=== PATIENT | female | born 1940 | race Caucasian/White ===

== ENCOUNTER 2018-11-16 07:20 | Outpatient (CLI) | payer MEDICARE ==
[2018-11-16 10:00] LABS: #Basophils 0.1 thou/uL (0.0-0.2); #Eosinphils 0.3 thou/uL (0.0-0.7); #Lymphocytes 1.8 thou/uL (1.20-3.40); #Monocytes 0.7 thou/uL (0.11-0.59); #Neutrophils 3.3 thou/uL (1.40-6.50); %Basophils 0.9 % (0.0-1.0); %Eosinophils 5.2 % (0.0-10.0); %Lymphocytes 29.5 % (21.0-51.0); %Monocytes 10.5 % (0.0-10.0); %Neutrophils 53.9 % (42.0-75.0); Mean Corpuscular HGB CONC 32.4 g/dL (32.0-36.0); Mean Corpuscular Hemoglobin 31.8 pg (27.0-31.0); Mean Corpuscular Volume 98.1 fL (78.0-98.0); Platelet Count 194 thou/uL (130-400); RBC Distribution Width 11.9 % (11.5-14.5); Red Blood Cell (RBC) Count 4.08 mill/uL (4.20-5.40); White Blood Cell (WBC) Count 6.2 thou/uL (4.8-10.8)
[2018-11-16 10:10] LABS: Bacteria/HPF None Seen HPF (None Seen); RBC/HPF None Seen HPF (0-3); Squamous Epithelial 0-3 HPF (0-3); WBC/HPF 0-3 HPF (0-3)
[2018-11-16 10:23] LABS: Anion Gap 11 mmol/L (10-20); BUN (Urea Nitrogen) 13 mg/dL (9.8-20.1); Calc. Creatinine Clearance 0 mL/min (70-130); Calcium 9.4 mg/dL (7.8-10.44); Carbon Dioxide 27 mmol/L (23-31); Chloride 105 mmol/L (98-107); Estimated GFR-MDRD 65; Glucose 87 mg/dL (83-110); Potassium 4.4 mmol/L (3.5-5.1); Sodium 139 mmol/L (136-145)
--- NOTE | 2018-11-19 16:46 | EKG ---
Test Reason : Blood Pressure : / mmHG Vent. Rate : 068 BPM Atrial Rate : 068 BPM P-R Int : 142 ms QRS Dur : 082 ms QT Int : 372 ms P-R-T Axes : 070 010 067 degrees QTc Int : 395 ms Normal sinus rhythm Normal ECG Confirmed by ZENON OATES ([id number]) on 11/19/2018 4:46:15 PM Referred By: MORE Confirmed By:ZENON OATES
== END 2018-11-16 07:21 | disposition home or self-care (01) ==
LOC: LABBT 07:20
PROVIDERS: ATTEND Orthopaedic Surgery Hand Surgery
DX: Z01.818 Encounter for other preprocedural examination (principal); S66.314A Strain of extensor muscle, fascia and tendon of right ring finger at wrist and hand level, initial encounter; S66.316A Strain of extensor muscle, fascia and tendon of right little finger at wrist and hand level, initial encounter
CPT/HCPCS: 80048; 81015; 85025; 93005; 93010

== ENCOUNTER 2018-11-20 10:06 | Day surgery (SDC) | payer MEDICARE ==
[2018-11-16 09:01] VITALS: BMI 20.5
[~2018-11-20 10:06] MED LIST: Bupivacaine 0.5% 10 ML VIAL ONE
[2018-11-20] MEDS ORDERED: Midazolam HCl 2 mg/2 ml Vial ONE ×2 (10:46→12:34)
[2018-11-20] MEDS ORDERED: Lidocaine 1% (PF) 30 ML VIAL ONE (10:46)
[2018-11-20] MEDS ORDERED: Fentanyl 100 MCG/2 ML VIAL ONE ×2 (10:46→12:34)
[2018-11-20] MEDS ORDERED: Bacitracin Zinc Ointment 30 gm TUBE ONE (12:33)
[2018-11-20] MEDS ORDERED: Bupivacaine PF 0.5% 30 ML VIAL ONE (12:33)
[2018-11-20] MEDS ORDERED: Betamet Acet/Betamet Na Ph 30 MG/5 ML VIAL ONE (14:08)
--- NOTE | 2018-11-21 09:30 | OP ---
DATE OF PROCEDURE: 11/20/2018 PREOPERATIVE DIAGNOSES: Tenosynovitis, ECRL and ECRB, extensor digitorum communis to the index finger, middle finger, ring finger, small finger, extensor digiti proprius, extensor digiti minimi. POSTOPERATIVE DIAGNOSES: Tenosynovitis, ECRL and ECRB, extensor digitorum communis to the index finger, middle finger, ring finger, small finger, extensor digiti proprius, extensor digiti minimi. Tenosynovitis of all these tendons as very unusual and spontaneous rupture with marked shortening of the extensor digitorum communis to the ring finger and the small finger and extensor indicis proprius to the small finger. PROCEDURE PERFORMED: 1. Radical tenosynovectomy of all tendons listed as follows: Extensor carpi radialis brevis, extensor carpi radialis longus, extensor digitorum communis of index finger, extensor digitorum communis of ring finger, extensor digitorum communis of middle finger, extensor digitorum communis of small finger, extensor indicis proprius, extensor digiti minimi. 2. Uezz-cj-[id number] ring finger extensor digitorum communis to the middle finger extensor digitorum communis, finally FDP harvest with . 3. Flexor digitorum superficialis, ring finger ipsilateral side, harvested and placed through the interosseous membrane to extensor indicis proprius and extensor digiti minimi and extensor digitorum communis to the small finger split simultaneously and then application of splint. TOURNIQUET TIME: Seventy-five minutes. FINDINGS: Thin extensor indicis proprius, extensor digitorum communis to the index finger with marked tenosynovitis but rupture greater than 5 cm gap well past the retinaculum was the primary stump. The next procedure is radical flexor tenosynovectomy with a dorsal over translocation protected from a sharp object in the future. There was synovitis of all four 2nd and 5th compartment indicis. This was from November 20, 2018. DESCRIPTION OF PROCEDURE: After successful general endotracheal anesthesia, the limb was prepped and draped. Time-out was done appropriately and site, side, and planned procedure were adequate. The patient had a dorsal incision made, carried through skin, subcutaneous tissue beginning at the mid 3rd metacarpal shaft level and coursing proximally to a point we were well proximal to the interosseous membrane. We carried the skin, subcutaneous, developing skin flaps for later closure. The patient had residual retinaculum and retinaculum was harvested from radial side leaving this ulnar base intact for what would be used for translocation protected tendon from the joint. We then debrided the ends of the ring finger, found it still attached well to the ring finger proximal phalanx and joint itself as did the small finger with both a separate compartment seen and it was covered with the extensor digiti minimi as well. The patient then needed visualization by removing this retinaculum over the 5th compartment tendons and seeing that they also had what appeared to be rupture, and proximal to the ulna styloid tendon was found, could not be reattached. We thus would need to use part of the small finger for the graft here, which we did. We then performed radical flexor tenosynovectomy to the extensor digitorum communis tendons, the ECRB, ECRL, EDC to the index finger, ring finger, small finger, and the EDQ and EDQ. The patient finished a radical flexor tenosynovectomy, finished the dissection saving the flexor pollicis longus and the extensors to the second compartment for being translocated on top of the retinaculum later and we realized we needed tendon, so we turned the hand over to palmar side, placed a moist lap sponge over the dorsal wound, and created a Yin incision beginning at the distal mid third distally of the ring finger ipsilateral middle phalanx, down to the middle of the proximal phalanx. We carried through skin, subcutaneous tissue, visualized the FDS by making a small window in the extensor tendon, maintained the pulleys, made a near fullness straight cut not violating the neurovascular structures which were well protected and visualized. We then harvested tendon by bringing it proximal before we entered A1 nisha, lifted up, the raphe and then we made a zigzag incision this proximal carpal tunnel where we could visualize the nerve and brought that into the field palmarly. We did have enough room after dissection to go just proximal to the interosseous membrane, so we did that and then spared the bed of the other extensor that would not bother. We brought this after the radical extensor digitorum profundus and we were able to complete all tasks. Once we had done the weave [id number] with appropriate 3-loop weave and then we made a tendon piece to tie into the flexor communis so would not slip away, we were able to obtain excellent tension and afterwards, with the evaluation of the function had excellent tension as the two fingers that had been in a flexed position, now slightly hyperextended, but with moving out. Bulky dressing was applied. A sugar-tong dorsal block splint and the fingers were detailed without complications. Patient then had tension confirmed, we took the retinaculum pretty underneath the tendon to protect the joint from possible synovitis or tenosynovitis, we were able to close the skin primarily and after we were doing this, released the tourniquet, obtained hemostasis, both the radial side and ulnar side. The patient was irrigated. The translocation was tied with 2-0 Vicryl [id number] interrupted, then we confirmed excellent position of the weaves first of the end-to-side of the ring finger, the end-to-side half of the flexor digitorum superficialis tendon transfer and the tendon transfer small finger. The patient left the operating room. Once we released the tourniquet, closed the skin with interrupted 4-0 nylon simple pattern. No evidence of anesthetic or operative complication. Job ID: [id number]
[2018-11-21 14:09] LABS: Ref Lab Test Ordered AFB SMEAR + CULTURE; Reference Lab Name LABCORP
== END 2018-11-20 16:39 | disposition home or self-care (01) ==
LOC: SDC 10:06
PROVIDERS: ATTEND Orthopaedic Surgery Hand Surgery
PROC: 0LB70ZZ Excision of Right Hand Tendon, Open Approach (ICD-10-PCS; principal; 2018-11-20)
PROC: 0LB70ZZ Excision of Right Hand Tendon, Open Approach (ICD-10-PCS; 2018-11-20)
PROC: 0LB70ZZ Excision of Right Hand Tendon, Open Approach (ICD-10-PCS; 2018-11-20)
PROC: 0LB70ZZ Excision of Right Hand Tendon, Open Approach (ICD-10-PCS; 2018-11-20)
PROC: 0LB70ZZ Excision of Right Hand Tendon, Open Approach (ICD-10-PCS; 2018-11-20)
PROC: 0LB70ZZ Excision of Right Hand Tendon, Open Approach (ICD-10-PCS; 2018-11-20)
PROC: 0LB70ZZ Excision of Right Hand Tendon, Open Approach (ICD-10-PCS; 2018-11-20)
PROC: 0LB70ZZ Excision of Right Hand Tendon, Open Approach (ICD-10-PCS; 2018-11-20)
PROC: 0LX50ZZ Transfer Right Lower Arm and Wrist Tendon, Open Approach (ICD-10-PCS; 2018-11-20)
DX: M65.841 Other synovitis and tenosynovitis, right hand (principal); S66.316A Strain of extensor muscle, fascia and tendon of right little finger at wrist and hand level, initial encounter; M66.241 Spontaneous rupture of extensor tendons, right hand; M19.90 Unspecified osteoarthritis, unspecified site; I11.9 Hypertensive heart disease without heart failure; E78.00 Pure hypercholesterolemia, unspecified; E07.9 Disorder of thyroid, unspecified; Z79.82 Long term (current) use of aspirin; Z79.83 Long term (current) use of bisphosphonates; Z79.899 Other long term (current) drug therapy; Z95.1 Presence of aortocoronary bypass graft; Z98.890 Other specified postprocedural states
CPT/HCPCS: 87070; 87116; 87205; 87206; 88305; J0690; J0702; J2001; J2250; J3010; J3490; S0020

== ENCOUNTER 2019-07-24 08:52 | Outpatient (CLI) | payer MEDICARE ==
[2019-07-24 11:13] LABS: #Basophils 0.1 thou/uL (0.0-0.2); #Eosinphils 0.2 thou/uL (0.0-0.7); #Lymphocytes 1.8 thou/uL (1.20-3.40); #Monocytes 0.5 thou/uL (0.11-0.59); #Neutrophils 4.3 thou/uL (1.40-6.50); %Eosinophils 3.6 % (0.0-10.0); %Lymphocytes 26.1 % (21.0-51.0); %Monocytes 7.6 % (0.0-10.0); %Neutrophils 61.7 % (42.0-75.0); Hemoglobin 13.1 g/dL (12.0-16.0); Mean Corpuscular HGB CONC 33.2 g/dL (32.0-36.0); Mean Corpuscular Hemoglobin 31.2 pg (27.0-31.0); Mean Corpuscular Volume 93.9 fL (78.0-98.0); Mean Platelet Volume 8.1 fL (7.4-10.4); Platelet Count 253 thou/uL (130-400); RBC Distribution Width 11.2 % (11.5-14.5); Red Blood Cell (RBC) Count 4.22 mill/uL (4.20-5.40)
[2019-07-24 11:14] LABS: Bacteria/HPF None Seen HPF (None Seen); Bilirubin Negative (Negative); Blood, Urine Negative (Negative); Clarity Clear (Clear); Glucose, Urine (Dipstick) Normal (Negative); Leukocyte Negative Leu/uL (Negative); Nitrite Negative (Negative); Protein, Urine (Dipstick) Negative (Neg-Trace); RBC/HPF 0-3 HPF (0-3); Squamous Epithelial None Seen HPF (0-3); Urobilinogen Normal mg/dL (Less than 2); WBC/HPF 0-3 HPF (0-3)
[2019-07-24 11:34] LABS: Anion Gap 12 mmol/L (10-20); BUN (Urea Nitrogen) 22 mg/dL (9.8-20.1); Calc. Creatinine Clearance 0 mL/min (70-130); Calcium 9.3 mg/dL (7.8-10.44); Carbon Dioxide 26 mmol/L (23-31); Chloride 106 mmol/L (98-107); Estimated GFR-MDRD 61; Glucose 82 mg/dL (83-110); Potassium 4.9 mmol/L (3.5-5.1); Sodium 139 mmol/L (136-145)
== END 2019-07-24 08:53 | disposition home or self-care (01) ==
LOC: LABBT 08:52
PROVIDERS: ATTEND Orthopaedic Surgery Hand Surgery
DX: Z01.818 Encounter for other preprocedural examination (principal); M19.041 Primary osteoarthritis, right hand; M24.541 Contracture, right hand
CPT/HCPCS: 80048; 81001; 85025; 93005; 93010

== ENCOUNTER 2019-09-25 06:31 | Outpatient (CLI) | payer MEDICARE, OTHER ==
[2019-09-25 11:34] LABS: #Basophils 0.1 thou/uL (0.0-0.2); #Eosinphils 0.4 thou/uL (0.0-0.7); #Lymphocytes 1.9 thou/uL (1.20-3.40); #Monocytes 0.6 thou/uL (0.11-0.59); #Neutrophils 4.7 thou/uL (1.40-6.50); %Basophils 0.9 % (0.0-1.0); %Eosinophils 4.7 % (0.0-10.0); %Monocytes 7.6 % (0.0-10.0); %Neutrophils 61.8 % (42.0-75.0); Hemoglobin 13.4 g/dL (12.0-16.0); Mean Corpuscular HGB CONC 32.8 g/dL (32.0-36.0); Mean Corpuscular Hemoglobin 30.9 pg (27.0-31.0); Mean Corpuscular Volume 94.1 fL (78.0-98.0); Mean Platelet Volume 8.1 fL (7.4-10.4); Platelet Count 274 thou/uL (130-400); RBC Distribution Width 11.2 % (11.5-14.5); Red Blood Cell (RBC) Count 4.33 mill/uL (4.20-5.40); White Blood Cell (WBC) Count 7.7 thou/uL (4.8-10.8)
[2019-09-25 11:35] LABS: Bacteria/HPF None Seen HPF (None Seen); Bilirubin Negative (Negative); Blood, Urine Negative (Negative); Clarity Clear (Clear); Glucose, Urine (Dipstick) Normal (Negative); Leukocyte Negative Leu/uL (Negative); Nitrite Negative (Negative); Protein, Urine (Dipstick) Negative (Neg-Trace); RBC/HPF 0-3 HPF (0-3); Squamous Epithelial 0-3 HPF (0-3); Urobilinogen Normal mg/dL (Less than 2); WBC/HPF None Seen HPF (0-3)
[2019-09-25 11:59] LABS: Anion Gap 11 mmol/L (10-20); BUN (Urea Nitrogen) 14 mg/dL (9.8-20.1); Calc. Creatinine Clearance 0 mL/min (70-130); Carbon Dioxide 27 mmol/L (23-31); Chloride 107 mmol/L (98-107); Estimated GFR-MDRD 65; Glucose 81 mg/dL (83-110); Potassium 4.2 mmol/L (3.5-5.1); Sodium 141 mmol/L (136-145)
[2019-09-25 20:11] LABS: SARS-CoV-2 MS2 Positive; SARS-CoV-2 N Gene Negative; SARS-CoV-2 S Gene Negative; SARS-CoV-2 orf1ab Negative
--- NOTE | 2019-09-25 22:14 | EKG ---
Test Reason : Blood Pressure : / mmHG Vent. Rate : 075 BPM Atrial Rate : 075 BPM P-R Int : 138 ms QRS Dur : 084 ms QT Int : 372 ms P-R-T Axes : 074 046 067 degrees QTc Int : 415 ms Normal sinus rhythm Normal ECG When compared with ECG of 24-JUL-2019 10:42, No significant change was found Confirmed by Merlin PISANO ([id number]) on 09/25/2019 10:13:36 PM Referred By: MORE Confirmed By:Merlin PISANO
== END 2019-09-25 06:32 | disposition home or self-care (01) ==
LOC: LABBT 06:31
PROVIDERS: ATTEND Orthopaedic Surgery Hand Surgery
DX: Z01.818 Encounter for other preprocedural examination (principal); Z11.59 Encounter for screening for other viral diseases; M19.041 Primary osteoarthritis, right hand; M24.541 Contracture, right hand
CPT/HCPCS: 80048; 81001; 85025; 93005; U0003; 87635; 93010

== ENCOUNTER → 2019-09-27 | Day surgery (SDC) | payer MEDICARE ==
[2019-09-25 10:28] VITALS: BMI 20.5
[~2019-09-27] MED LIST changes: +Bacitracin Zinc Ointment 30 gm TUBE ONE; +Betamet Acet/Betamet Na Ph 30 MG/5 ML VIAL ONE; +Bupivacaine 0.25% HCL 30 ML VIAL ONE; -Bupivacaine 0.5% 10 ML VIAL ONE; +Bupivacaine HCl 0.5%/Epinephrine 1:200,000/PF 30 ml Vial ONE; +Bupivacaine PF 0.5% 30 ML VIAL ONE; +Bupivacaine/Epinephrine 0.25% 30 ML VIAL ONE; +Fentanyl 100 MCG/2 ML VIAL ONE; +HYDROcodone/Acetaminophen 5/325 mg Tablet ONE; +Ketorolac Tromethamine 30 MG/ML VIAL ONE; +Labetalol HCl 100 MG/20 ML VIAL ONE; +Lidocaine 1% PF 5 ML VIAL ONE; +Midazolam HCl 2 mg/2 ml Vial ONE; +Ondansetron PF 4 MG/2 ML Vial ONE; +PHENYLEPHRINE-NS 100 MCG/ML 10 ML SYRINGE ONE; +PROPOFOL 200 MG/20 ML VIAL ONE
--- NOTE | 2019-09-27 14:07 | RAD ---
EXAM: XR Finger(s) Rt Min 2 View PROVIDED CLINICAL HISTORY: Arthroplasty COMPARISON: None FINDINGS: Spot fluoroscopic frontal and lateral views of the right ring digit demonstrate PIP arthroplasty reynaldo petersen. IMPRESSION: As above.
--- NOTE | 2019-10-01 13:15 | OP ---
DATE OF PROCEDURE: 09/27/2019 ANESTHESIA: General LMA technique augmented by local metacarpophalangeal joint block both digits, total of 20 cc of 0.5% Marcaine and epinephrine split evenly between right small finger and ring finger. 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 PROCEDURE PERFORMED: At the right ring finger; 1. Dorsal capsular release, right ring finger proximal phalangeal joint. 2. Intrinsic release, radial and ulnar intrinsics, right ring finger. 3. Size 1, [employer] silastic implants proximal interphalangeal joint for proximal phalangeal arthroplasty from dorsal approach. 4. C-arm supervision. At the right small finger; 1. Dorsal capsular release. 2. Intrinsic release, radial and ulnar. 3. Size 00 proximal phalangeal joint arthroplasty with [employer] implant, silastic. ESTIMATED BLOOD LOSS: Total 25 cc. TOURNIQUET TIME: 58 minutes for the ring finger, then tourniquet was down for 20 minutes, and then 45 minutes for the small finger. SPECIMENS: No specimen. INDICATIONS: Patient had previous extensor tendon transfers and MP joint loss extension, this healed well, but she began to notice progressive loss of motion with pain that became excruciating and failed all conservative treatment at the small and ring finger proximal phalangeal joint. Radiographs confirmed the marked osteoarthritis, operative intervention was indicated and she chose to have arthroplasty versus fusion. DESCRIPTION OF PROCEDURE: After successful general endotracheal anesthesia, the limb was prepped and draped. We then placed the block in both of the small and ring finger as identified on the right side and as listed above, waited 5 minutes, and then exsanguinated the limb, inflated the tourniquet to 250 mmHg pressure. Outlined a dorsal approach to both the small finger and ring finger PIP joint in zigzag fashion centered on the PIP joint and we approached the right ring finger first. The incision was carried through skin and subcutaneous tissue, down to an involving extensor mechanism which we then split with Z-plasty over the dorsal aspect. This gave excellent visualization and we then did a shotgun opening of the PIP joint. Then, before we performed anymore procedures, we then did the intrinsic release proximally, taking out a small triangular piece between the extensor tendon and the intrinsics on both sides. We then had 90-degree flexion. We dissected the capsule back and performed a capsule release and then did release palmarly as well. This allowed active visualization and then used a saw to remove the proximal phalanx distal neck and saw a complete articular surface and then made a removal of same surface with the saw in the sagittal plane. Now, we had almost a box cut. The collaterals were now removed, tagged with a 4-0 Prolene for later repair using the Marlyn suture. We then made a saw cut of approximately 1 mm depth from radial to ulnar along the base of the middle phalanx, used a rongeur to remove as much of the dorsal arthritis as possible, leaving the central slips still intact. We then used a bur to remove the remainder of the chondral surface of the ring finger P2 base and then used a C-arm to confirm that the starter broach was placed in appropriate position in the canal both distally and proximally both on P1 and P2. Once this was done, we then began progressive broaching until we had reached the point where the size 1 broach both proximal and distal fit well. C-arm confirmed the centralization and we had trial prosthesis. Trial prosthesis was excellent, so we chose a size 1 [employer] silastic implant for the ring finger. We placed this. We then saw the trial was excellent, so we used a 0.045 K-wire to drill a hole at the neck of the proximal phalanx to replace the collaterals with a 4-0 Prolene back to bone, tied them, placed the #1 prosthesis in an appropriate orientation and then saw the excellent fit, we could achieve 0 degrees 105 degrees passively without undue tension. We then repaired the extensor mechanism with a 4-0 Prolene at both the transverse limbs, interrupted [id number] and at the longitudinal limb, a running [id number]. We then could flex the PIP joint to 110 degrees without undue tension and there was no loss of fixation of the extensor mechanism. We released the tourniquet. Final C-arm pictures for the ring finger showed excellent position. We obtained hemostasis, and then closed the wound with interrupted 5-0 nylon in a mattress pattern. Then, we prepared to place bacitracin, Adaptic, and bulky dressing over this area. The last portion of the procedure had been done with the tourniquet down. We then reinflated the tourniquet. We used the same incision, the same intrinsic release radial and ulnar, and a mirror image arthroplasty except for the size which was a size 00 on the small finger. Otherwise, closure of the wound and of the extensor mechanism and of the collaterals was the same. The patient had excellent position and passive range of motion, we then released the tourniquet for final time, had excellent hemostasis and excellent capillary refill with pink small ring finger digit tips. We placed in a bulky dressing with a splint and put the MP joints at 7 degrees of flexion, the PIP joint at 0 with the nail bed free. The patient left the operating room without evidence of anesthetic or operative complication. Job ID: [id number]
== END ==
LOC: SDC 07:51
PROVIDERS: ATTEND Orthopaedic Surgery Hand Surgery
PROC: 0RRW0JZ Replacement of Right Finger Phalangeal Joint with Synthetic Substitute, Open Approach (ICD-10-PCS; principal; 2019-09-27)
PROC: 0RRW0JZ Replacement of Right Finger Phalangeal Joint with Synthetic Substitute, Open Approach (ICD-10-PCS; 2019-09-27)
PROC: 3E0T3BZ Introduction of Anesthetic Agent into Peripheral Nerves and Plexi, Percutaneous Approach (ICD-10-PCS; 2019-09-27)
PROC: 3E0T3BZ Introduction of Anesthetic Agent into Peripheral Nerves and Plexi, Percutaneous Approach (ICD-10-PCS; 2019-09-27)
DX: M13.841 Other specified arthritis, right hand (principal); M24.541 Contracture, right hand; M35.1 Other overlap syndromes; G89.18 Other acute postprocedural pain; I11.9 Hypertensive heart disease without heart failure; E78.00 Pure hypercholesterolemia, unspecified; E07.9 Disorder of thyroid, unspecified; Z79.82 Long term (current) use of aspirin; Z79.899 Other long term (current) drug therapy; Z88.1 Allergy status to other antibiotic agents; Z88.2 Allergy status to sulfonamides; Z95.1 Presence of aortocoronary bypass graft; Z95.5 Presence of coronary angioplasty implant and graft
CPT/HCPCS: 26536 ×2; 64450 ×2; 73140; 76000; C1776; J0670; J0690; J0702; J1885; J2001; J2250; J2405; J2704; J3010; J3370; S0020

== ENCOUNTER 2020-02-06 07:28 | Outpatient (CLI) | payer MEDICARE, OTHER ==
[2020-02-06 11:47] LABS: #Basophils 0.1 thou/uL (0.0-0.2); #Eosinphils 0.7 thou/uL (0.0-0.7); #Lymphocytes 1.8 thou/uL (1.20-3.40); #Monocytes 0.5 thou/uL (0.11-0.59); #Neutrophils 2.7 thou/uL (1.40-6.50); %Basophils 0.9 % (0.0-1.0); %Eosinophils 11.6 % (0.0-10.0); %Lymphocytes 32.1 % (21.0-51.0); %Monocytes 8.6 % (0.0-10.0); %Neutrophils 46.8 % (42.0-75.0); Hemoglobin 13.2 g/dL (12.0-16.0); Mean Corpuscular HGB CONC 31.7 g/dL (32.0-36.0); Mean Corpuscular Hemoglobin 30.2 pg (27.0-31.0); Mean Corpuscular Volume 95.4 fL (78.0-98.0); Mean Platelet Volume 8.4 fL (7.4-10.4); Platelet Count 293 thou/uL (130-400); RBC Distribution Width 11.1 % (11.5-14.5); Red Blood Cell (RBC) Count 4.36 mill/uL (4.20-5.40); White Blood Cell (WBC) Count 5.7 thou/uL (4.8-10.8)
[2020-02-06 12:26] LABS: Bacteria/HPF None Seen HPF (None Seen); Bilirubin Negative (Negative); Blood, Urine Negative (Negative); Clarity Clear (Clear); Glucose, Urine (Dipstick) Normal (Negative); Ketone, Urine Negative (Negative); Leukocyte Negative Leu/uL (Negative); Nitrite Negative (Negative); Protein, Urine (Dipstick) Negative (Neg-Trace); RBC/HPF 0-3 HPF (0-3); Specific Gravity, Urine 1.013 (1.002-1.036); Squamous Epithelial None Seen HPF (0-3); Urobilinogen Normal mg/dL (Less than 2); WBC/HPF 0-3 HPF (0-3); pH, Urine 6.5 (5.0-9.0)
[2020-02-06 17:49] LABS: SARS-CoV-2 MS2 Positive; SARS-CoV-2 N Gene Negative; SARS-CoV-2 S Gene Negative; SARS-CoV-2 by NAA Not Detected (NotDetected); SARS-CoV-2 orf1ab Negative
== END 2020-02-06 07:29 | disposition home or self-care (01) ==
LOC: LABBT 07:28
PROVIDERS: ATTEND Orthopaedic Surgery Hand Surgery
DX: Z01.818 Encounter for other preprocedural examination (principal); Z20.828 Contact with and (suspected) exposure to other viral communicable diseases; M24.541 Contracture, right hand
CPT/HCPCS: 81001; 85025; 93005; U0003; 87635; 93010

== ENCOUNTER 2020-02-10 11:47 | Day surgery (SDC) | payer MEDICARE ==
[2020-02-06 11:51] VITALS: BMI 21.4
[~2020-02-10 11:47] MED LIST changes: -Bacitracin Zinc Ointment 30 gm TUBE ONE; -Betamet Acet/Betamet Na Ph 30 MG/5 ML VIAL ONE; -Bupivacaine 0.25% HCL 30 ML VIAL ONE; -Bupivacaine HCl 0.5%/Epinephrine 1:200,000/PF 30 ml Vial ONE; -Bupivacaine PF 0.5% 30 ML VIAL ONE; -Bupivacaine/Epinephrine 0.25% 30 ML VIAL ONE; +Dexamethasone 20 MG/5 ML VIAL ONE; -Fentanyl 100 MCG/2 ML VIAL ONE; -HYDROcodone/Acetaminophen 5/325 mg Tablet ONE; -Ketorolac Tromethamine 30 MG/ML VIAL ONE; -Labetalol HCl 100 MG/20 ML VIAL ONE; -Midazolam HCl 2 mg/2 ml Vial ONE; -PHENYLEPHRINE-NS 100 MCG/ML 10 ML SYRINGE ONE
[2020-02-10] MEDS ORDERED: Bupivacaine PF 0.5% 30 ML VIAL ONE (13:50)
[2020-02-10] MEDS ORDERED: Fentanyl 100 MCG/2 ML VIAL ONE (13:50)
[2020-02-10] MEDS ORDERED: Bacitracin Zinc Ointment 30 gm TUBE ONE (14:12)
[2020-02-10] MEDS ORDERED: Betamet Acet/Betamet Na Ph 30 MG/5 ML VIAL ONE ×2 (14:38→14:42)
[2020-02-10] MEDS ORDERED: Ketorolac Tromethamine 30 MG/ML VIAL ONE (15:55)
--- NOTE | 2020-02-11 08:14 | OP ---
DATE OF PROCEDURE: 02/10/2020 PREOPERATIVE DIAGNOSES: 1. Right small finger: a. Extensor tendon adhesions. b. Joint capsule tightness with motion loss. c. 2. Right ring finger: a. Extensor tendon adhesions. b. Joint capsular tightness with loss of flexion. c. Intrinsic tightness. POSTOPERATIVE DIAGNOSES: 1. Right small finger: a. Extensor tendon adhesions. b. c. 2. Right ring finger: a. Extensor tendon adhesions. b. Joint capsular tightness with loss of flexion. c. Intrinsic tightness. PROCEDURES PERFORMED: 1. Right small finger: a. Extensor tenolysis, finger. b. Dorsal capsulotomy, proximal phalangeal joint. c. Intrinsic release radial and ulna. 2. Right ring finger: a. Extensor tenolysis of the finger. b. Dorsal capsulotomy with joint release. c. Intrinsic release, radial and ulnar aspect of the small finger. DESCRIPTION OF PROCEDURE: After successful general endotracheal anesthesia, the limb was prepped and draped. The patient was given 20 mL of 0.5% Marcaine block at the third, fourth and fifth webspace. Then, we saw her previous incisions, put little hash [place] across them for realigning the skin, and then, we exsanguinated the limb and inflated the tourniquet to 250 mmHg pressure. We first used the ring finger, entered the incision and then dissected the soft tissue plate, leaving a generous amount of skin thickening for later closure. We then confirmed her intrinsic tightness and then released the intrinsics from just distal to the central slip insertion to all the way proximal to the fourth MP joint. Then, we elevated up the ulnar and radial portion of the distal radius to expose the capsule or pseudocapsule and then we released this. We then lifted up the entire tendon as far as we could see back in the digit and removed any adhesions that would be prevalent at this point at the right ring finger. Now that the dorsal capsulotomy was complete, we now had a passive flexion of 95 degrees where preop in the operating room, passive flexion was only about 55 degrees. Once we had finished this, we did the mirror image procedure at the right small finger to include the exact line of cuts for the intrinsic releases. Both fingers now had 95 degrees passive range of motion. When the patient awoke in recovery, this was maintained. Digits were pink. The patient left the operating room without evidence of anesthetic or operative complication. Job ID: [id number]
== END 2020-02-10 17:20 | disposition home or self-care (01) ==
LOC: SDC 11:47
PROVIDERS: ATTEND Orthopaedic Surgery Hand Surgery
PROC: 0KNC0ZZ Release Right Hand Muscle, Open Approach (ICD-10-PCS; principal; 2020-02-10)
PROC: 0RNW0ZZ Release Right Finger Phalangeal Joint, Open Approach (ICD-10-PCS; 2020-02-10)
PROC: 0RNW0ZZ Release Right Finger Phalangeal Joint, Open Approach (ICD-10-PCS; 2020-02-10)
DX: M24.541 Contracture, right hand (principal); M19.041 Primary osteoarthritis, right hand; M18.12 Unilateral primary osteoarthritis of first carpometacarpal joint, left hand; Z79.82 Long term (current) use of aspirin; Z79.899 Other long term (current) drug therapy; Z88.2 Allergy status to sulfonamides
CPT/HCPCS: J0690; J0702; J1100; J1885; J2405; J2704; J3010; J3490; S0020

== ENCOUNTER 2022-08-26 12:21 | Emergency (ER) | payer MEDICARE ==
[2022-08-26 12:51] LABS: Bilirubin Negative (Negative); Blood, Urine Negative (Negative); Clarity Clear (Clear); Glucose, Urine (Dipstick) Normal (Negative); Ketone, Urine Negative (Negative); Leukocyte Negative Leu/uL (Negative); Nitrite Negative (Negative); Protein, Urine (Dipstick) Negative (Neg-Trace); Specific Gravity, Urine 1.005 (1.002-1.036); Urobilinogen Normal mg/dL (Less than 2); pH, Urine 6.5 (5.0-9.0)
[2022-08-26 13:44] LABS: #Basophils 0.1 thou/uL (0.0-0.2); #Eosinphils 0.3 thou/uL (0.0-0.7); #Lymphocytes 1.9 thou/uL (1.20-3.40); #Monocytes 0.5 thou/uL (0.11-0.59); #Neutrophils 6.3 thou/uL (1.40-6.50); %Basophils 0.7 % (0.0-1.0); %Eosinophils 3.8 % (0.0-10.0); %Lymphocytes 21.1 % (21.0-51.0); %Monocytes 5.9 % (0.0-10.0); %Neutrophils 68.5 % (42.0-75.0); Hemoglobin 13.5 g/dL (12.0-16.0); Mean Corpuscular HGB CONC 33.6 g/dL (32.0-36.0); Mean Corpuscular Hemoglobin 31.1 pg (27.0-31.0); Mean Corpuscular Volume 92.6 fl (78.0-98.0); Mean Platelet Volume 8.1 fL (7.4-10.4); Platelet Count 272 10x3/uL (130-400); RBC Distribution Width 11.1 % (11.5-14.5); Red Blood Cell (RBC) Count 4.35 mill/uL (4.20-5.40); White Blood Cell (WBC) Count 9.1 10x3/uL (4.8-10.8)
[2022-08-26 14:04] LABS: Albumin 4.1 g/dL (3.4-4.8); Anion Gap 12 mmol/L (10-20); BUN (Urea Nitrogen) 17 mg/dL (9.8-20.1); Bilirubin, Total 0.4 mg/dL (0.2-1.2); Calc. Creatinine Clearance 0 mL/min (70-130); Calcium 9.6 mg/dL (7.8-10.44); Carbon Dioxide 26 mmol/L (23-31); Chloride 104 mmol/L (98-107); Estimated GFR 63; Glucose 87 mg/dL (83-110); Potassium 4.1 mmol/L (3.5-5.1); Protein, Total 7.1 g/dL (5.8-8.1); Sodium 138 mmol/L (136-145)
[2022-08-26 14:05] LABS: ALT (SGPT) 18 U/L (8-55); AST (SGOT) 22 U/L (5-34); Alkaline Phosphatase 58 U/L (40-110); Lipase 42 U/L (8-78)
[2022-08-26 15:35] LABS: Troponin I Less than 0.010 ng/mL (< 0.028)
[2022-08-26] MEDS ORDERED: Lidocaine 4% Patch TD SCH (16:30)
[2022-08-27] MEDS ORDERED: Transdermal Patch Removal TOP SCH (04:30)
== END 2022-08-26 18:20 | disposition home or self-care (01) ==
LOC: ERS 12:21
DX: R07.81 Pleurodynia (principal); I10 Essential (primary) hypertension; E03.9 Hypothyroidism, unspecified; E78.5 Hyperlipidemia, unspecified; I25.10 Atherosclerotic heart disease of native coronary artery without angina pectoris; Z79.899 Other long term (current) drug therapy; Z79.82 Long term (current) use of aspirin
CPT/HCPCS: 36415; 71046; 76705; 80053; 81003; 83690; 84484; 85025; 93005

== ENCOUNTER 2024-11-05 17:27 | Observation (INO) | payer MEDICARE ==
[~2024-11-05 17:27] MED LIST changes: -Dexamethasone 20 MG/5 ML VIAL ONE; +Iopamidol-370 76% 500 ML MDV (1 ML CHARGE) ONE; -Lidocaine 1% PF 5 ML VIAL ONE; -Ondansetron PF 4 MG/2 ML Vial ONE; -PROPOFOL 200 MG/20 ML VIAL ONE
[2024-11-05 18:53] LABS: #Basophils 0.09 10x3/uL (0.0-0.2); #Eosinophils 0.24 10x3/uL (0.0-0.7); #Monocytes 0.49 10x3/uL (0.11-0.59); #Neutrophils 5.23 10x3/uL (1.40-6.50); %Basophils 1.2 % (0.0-1.0); %Eosinophils 3.2 % (0.0-10.0); %Lymphocytes 18.0 % (21.0-51.0); %Monocytes 6.6 % (0.0-10.0); %Neutrophils 70.3 % (42.0-75.0); Hematocrit 38.8 % (36.0-47.0); Hemoglobin 12.8 g/dL (12.0-16.0); Mean Corpuscular Hemoglobin 30.3 pg (27.0-31.0); Mean Corpuscular Volume 91.7 fL (78.0-98.0); Platelet Count 231 10x3/uL (130-400); Red Blood Cell (RBC) Count 4.23 mill/uL (4.20-5.40); White Blood Cell (WBC) Count 7.44 10x3/uL (4.8-10.8)
[2024-11-05 19:09] LABS: INR-International Normal Ratio 1.2; PTT 27.2 sec (22.9-36.1); Prothrombin Time 14.8 sec (12.0-14.7)
[2024-11-05 19:16] LABS: Troponin I Less than 0.010 ng/mL (< 0.028)
[2024-11-05 19:28] LABS: ALT (SGPT) 17 U/L (Less than 34); AST (SGOT) 47 U/L (11-34); Albumin 3.5 g/dL (3.1-4.5); Alkaline Phosphatase 69 U/L (40-110); Anion Gap 12 mmol/L (10-20); BUN (Urea Nitrogen) 15 mg/dL (9.8-20.1); Bilirubin, Total 0.3 mg/dL (0.3-1.2); Calc. Creatinine Clearance 0 mL/min (70-130); Calcium 8.5 mg/dL (7.8-10.44); Carbon Dioxide 22 mmol/L (23-31); Chloride 109 mmol/L (98-107); Globulin 3.5 g/dL (2.4-3.5); Glucose 86 mg/dL (83-110); Potassium 5.4 mmol/L (3.5-5.1); Sodium 138 mmol/L (136-145)
[2024-11-05] MEDS ORDERED: Electrolyte Replacement Protocol 1 EACH FS PRN (21:15)
[2024-11-05] MEDS ORDERED: Calcium Carbonate 500 MG ChewTAB PO PRN (21:15)
[2024-11-05] MEDS ORDERED: Ondansetron PF 4 MG/2 ML Vial IVP PRN (21:15)
[2024-11-05] MEDS ORDERED: Acetaminophen 325 MG TAB PO PRN (21:15)
[2024-11-05] MEDS: Aspirin 81 mg Enteric Coated Tablet PO SCH (22:39)
[2024-11-05 22:50] VITALS: BMI 25.1
[2024-11-06 03:52] LABS: #Basophils 0.06 10x3/uL (0.0-0.2); #Eosinophils 0.35 10x3/uL (0.0-0.7); #Monocytes 0.75 10x3/uL (0.11-0.59); #Neutrophils 3.31 10x3/uL (1.40-6.50); %Basophils 0.9 % (0.0-1.0); %Eosinophils 5.3 % (0.0-10.0); %Lymphocytes 31.5 % (21.0-51.0); %Monocytes 11.4 % (0.0-10.0); %Neutrophils 50.4 % (42.0-75.0); Hematocrit 35.7 % (36.0-47.0); Hemoglobin 12.0 g/dL (12.0-16.0); Mean Corpuscular Hemoglobin 30.2 pg (27.0-31.0); Mean Corpuscular Volume 89.7 fL (78.0-98.0); Platelet Count 235 10x3/uL (130-400); Red Blood Cell (RBC) Count 3.98 mill/uL (4.20-5.40); White Blood Cell (WBC) Count 6.57 10x3/uL (4.8-10.8)
[2024-11-06 04:40] LABS: ALT (SGPT) 14 U/L (Less than 34); AST (SGOT) 21 U/L (11-34); Albumin 3.1 g/dL (3.1-4.5); Alkaline Phosphatase 67 U/L (40-110); Anion Gap 10 mmol/L (10-20); BUN (Urea Nitrogen) 14 mg/dL (9.8-20.1); Bilirubin, Total 0.4 mg/dL (0.3-1.2); Calc. Creatinine Clearance 45 mL/min (70-130); Calcium 8.4 mg/dL (7.8-10.44); Carbon Dioxide 26 mmol/L (23-31); Cardiac Risk 2.6 (Less than 4.5); Chloride 109 mmol/L (98-107); Cholesterol 135 mg/dl (< 200 Desired); Globulin 2.9 g/dL (2.4-3.5); Glucose 86 mg/dL (83-110); HDL Cholesterol 52 mg/dL (>60 Neg Risk); LDL Cholesterol, Calculated 71 mg/dL; Potassium 3.9 mmol/L (3.5-5.1); Sodium 141 mmol/L (136-145); Triglycerides 60 mg/dL (Less than 150)
[2024-11-06] MEDS: Pantoprazole 40 MG DR.TAB PO SCH (09:14)
[2024-11-06 16:33] VITALS: TEMP 98
[2024-11-06 16:35] VITALS: BP 158/79
== END 2024-11-06 18:01 | disposition home or self-care (01) ==
LOC: SUATTDRO 17:27 → ERS 17:27 → 2SE 20:54
PROVIDERS: ADMIT Internal Medicine; ATTEND Internal Medicine
DX: R42 Dizziness and giddiness (principal); I10 Essential (primary) hypertension; I25.10 Atherosclerotic heart disease of native coronary artery without angina pectoris; E78.5 Hyperlipidemia, unspecified; E03.9 Hypothyroidism, unspecified; Z95.1 Presence of aortocoronary bypass graft; Z88.2 Allergy status to sulfonamides; Z79.890 Hormone replacement therapy; Z79.82 Long term (current) use of aspirin; Z79.02 Long term (current) use of antithrombotics/antiplatelets; Z79.899 Other long term (current) drug therapy
CPT/HCPCS: 36415; 70450; 70496; 70498; 70551; 71045; 80053; 80061; 84484; 85025; 85610; 85730; 93005; G0378; Q9967

== ENCOUNTER 2025-01-28 16:25 | Inpatient (IN) | payer MEDICARE ==
[2025-01-28 17:58] LABS: #Basophils 0.05 10x3/uL (0.0-0.2); #Eosinophils Less than 0.03 10x3/uL (0.0-0.7); #Monocytes 1.09 10x3/uL (0.11-0.59); #Neutrophils 16.29 10x3/uL (1.40-6.50); %Basophils 0.3 % (0.0-1.0); %Eosinophils 0.0 % (0.0-10.0); %Lymphocytes 3.2 % (21.0-51.0); %Monocytes 6.0 % (0.0-10.0); %Neutrophils 89.9 % (42.0-75.0); Hematocrit 34.1 % (36.0-47.0); Hemoglobin 11.5 g/dL (12.0-16.0); Mean Corpuscular Hemoglobin 30.1 pg (27.0-31.0); Mean Corpuscular Volume 89.3 fL (78.0-98.0); Platelet Count 233 10x3/uL (130-400); Red Blood Cell (RBC) Count 3.82 mill/uL (4.20-5.40); White Blood Cell (WBC) Count 18.12 10x3/uL (4.8-10.8)
[2025-01-28] MEDS ORDERED: Dextrose 50% Abboject 50 ML SYRINGE SLOW IVP PRN (18:10)
[2025-01-28] MEDS ORDERED: Glucagon 1 MG/ML KIT IM PRN (18:10)
[2025-01-28] MEDS ORDERED: Acetaminophen 325 MG TAB PO PRN (18:10)
[2025-01-28 18:16] LABS: ALT (SGPT) 20 U/L (Less than 34); AST (SGOT) 32 U/L (11-34); Albumin 3.3 g/dL (3.1-4.5); Alkaline Phosphatase 76 U/L (40-110); Anion Gap 15 mmol/L (10-20); BUN (Urea Nitrogen) 22 mg/dL (9.8-20.1); Bilirubin, Total 0.7 mg/dL (0.3-1.2); Calc. Creatinine Clearance 0 mL/min (70-130); Calcium 8.6 mg/dL (7.8-10.44); Carbon Dioxide 21 mmol/L (23-31); Chloride 105 mmol/L (98-107); Globulin 3.0 g/dL (2.4-3.5); Glucose 140 mg/dL (83-110); Potassium 4.1 mmol/L (3.5-5.1); Sodium 137 mmol/L (136-145)
[2025-01-28 20:44] LABS: INR-International Normal Ratio 1.1; Prothrombin Time 14.0 sec (12.0-14.7)
[2025-01-28 22:55] VITALS: BMI 27.5
[2025-01-29 04:25] LABS: #Basophils 0.03 10x3/uL (0.0-0.2); #Eosinophils Less than 0.03 10x3/uL (0.0-0.7); #Monocytes 0.95 10x3/uL (0.11-0.59); #Neutrophils 8.27 10x3/uL (1.40-6.50); %Basophils 0.3 % (0.0-1.0); %Eosinophils 0.0 % (0.0-10.0); %Lymphocytes 11.0 % (21.0-51.0); %Monocytes 9.1 % (0.0-10.0); %Neutrophils 79.0 % (42.0-75.0); Hematocrit 28.2 % (36.0-47.0); Hemoglobin 9.0 g/dL (12.0-16.0); Mean Corpuscular Hemoglobin 29.4 pg (27.0-31.0); Mean Corpuscular Volume 92.2 fL (78.0-98.0); Platelet Count 190 10x3/uL (130-400); Red Blood Cell (RBC) Count 3.06 mill/uL (4.20-5.40); White Blood Cell (WBC) Count 10.46 10x3/uL (4.8-10.8)
[2025-01-29 04:39] LABS: Anion Gap 13 mmol/L (10-20); BUN (Urea Nitrogen) 21 mg/dL (9.8-20.1); Calc. Creatinine Clearance 48 mL/min (70-130); Calcium 8.1 mg/dL (7.8-10.44); Carbon Dioxide 21 mmol/L (23-31); Chloride 106 mmol/L (98-107); Glucose 123 mg/dL (83-110); Potassium 4.7 mmol/L (3.5-5.1); Sodium 135 mmol/L (136-145)
[2025-01-29] MEDS: Methocarbamol 500 MG TAB PO SCH (08:27)
[2025-01-29] MEDS: Acetaminophen 325 MG TAB PO SCH (08:28)
[2025-01-29] MEDS: Ondansetron PF 4 MG/2 ML Vial IVP PRN (10:11)
[2025-01-29] MEDS ORDERED: HYDROcodone/Acetaminophen 5/325 mg Tablet PO PRN (11:35)
[2025-01-29] MEDS: Ketorolac Tromethamine 30 MG (1 mL) VIAL IVP PRN (13:05)
[2025-01-29] MEDS ORDERED: CEFAZOLIN 2 GM VIAL ONE (14:17)
[2025-01-29] MEDS ORDERED: Scopolamine 1 mg/72 hour Patch ONE (14:48)
[2025-01-29] MEDS ORDERED: PROPOFOL 200 MG/20 ML VIAL ONE (15:24)
[2025-01-29] MEDS ORDERED: Lidocaine 1% PF 5 ML VIAL ONE (15:24)
[2025-01-29] MEDS ORDERED: PHENYLEPHRINE-NS 100 MCG/ML 10 ML SYRINGE ONE (15:24)
[2025-01-29] MEDS ORDERED: Ondansetron PF 4 MG/2 ML Vial ONE (15:24)
[2025-01-29] MEDS: Famotidine/PF 20 mg/2ml Vial SLOW IVP SCH (21:03)
[2025-01-30 04:54] LABS: #Basophils Less than 0.03 10x3/uL (0.0-0.2); #Eosinophils Less than 0.03 10x3/uL (0.0-0.7); #Monocytes 0.91 10x3/uL (0.11-0.59); #Neutrophils 8.64 10x3/uL (1.40-6.50); %Basophils 0.1 % (0.0-1.0); %Eosinophils 0.0 % (0.0-10.0); %Lymphocytes 10.3 % (21.0-51.0); %Monocytes 8.5 % (0.0-10.0); %Neutrophils 80.5 % (42.0-75.0); Hematocrit 24.9 % (36.0-47.0); Hemoglobin 8.0 g/dL (12.0-16.0); Mean Corpuscular Hemoglobin 30.1 pg (27.0-31.0); Mean Corpuscular Volume 93.6 fL (78.0-98.0); Platelet Count 151 10x3/uL (130-400); Red Blood Cell (RBC) Count 2.66 mill/uL (4.20-5.40); White Blood Cell (WBC) Count 10.72 10x3/uL (4.8-10.8)
[2025-01-30 05:12] LABS: Anion Gap 11 mmol/L (10-20); BUN (Urea Nitrogen) 19 mg/dL (9.8-20.1); Calc. Creatinine Clearance 46 mL/min (70-130); Calcium 7.9 mg/dL (7.8-10.44); Carbon Dioxide 24 mmol/L (23-31); Chloride 110 mmol/L (98-107); Glucose 115 mg/dL (83-110); Potassium 4.6 mmol/L (3.5-5.1); Sodium 140 mmol/L (136-145)
[2025-01-30] MEDS: Heparin 5,000 UNITS/ML VIAL SC SCH (08:09)
[2025-01-30] MEDS: Senokot S 8.6-50 MG TAB PO SCH (19:48)
[2025-01-31 04:59] LABS: #Basophils 0.05 10x3/uL (0.0-0.2); #Eosinophils 0.19 10x3/uL (0.0-0.7); #Monocytes 1.03 10x3/uL (0.11-0.59); #Neutrophils 5.17 10x3/uL (1.40-6.50); %Basophils 0.6 % (0.0-1.0); %Eosinophils 2.2 % (0.0-10.0); %Lymphocytes 24.0 % (21.0-51.0); %Monocytes 12.0 % (0.0-10.0); %Neutrophils 60.5 % (42.0-75.0); Hematocrit 20.5 % (36.0-47.0); Hemoglobin 6.6 g/dL (12.0-16.0); Mean Corpuscular Hemoglobin 30.3 pg (27.0-31.0); Mean Corpuscular Volume 94.0 fL (78.0-98.0); Platelet Count 149 10x3/uL (130-400); Red Blood Cell (RBC) Count 2.18 mill/uL (4.20-5.40); White Blood Cell (WBC) Count 8.55 10x3/uL (4.8-10.8)
[2025-01-31 05:43] LABS: Anion Gap 11 mmol/L (10-20); BUN (Urea Nitrogen) 18 mg/dL (9.8-20.1); Calc. Creatinine Clearance 46 mL/min (70-130); Calcium 7.7 mg/dL (7.8-10.44); Carbon Dioxide 24 mmol/L (23-31); Chloride 113 mmol/L (98-107); Glucose 106 mg/dL (83-110); Potassium 3.9 mmol/L (3.5-5.1); Sodium 144 mmol/L (136-145)
[2025-01-31 06:11] LABS: Hematocrit 22.6 % (36.0-47.0); Hemoglobin 7.4 g/dL (12.0-16.0)
[2025-01-31 08:36] VITALS: BP 158/69; TEMP 98.2
[2025-01-31] MEDS: Milk Of Magnesia 30 ML UDCUP PO SCH (09:12)
== END 2025-01-31 11:15 | DRG 481 ==
LOC: ERS 16:25 → ERHOLD 18:10 → 2NO 01-29 00:43
PROVIDERS: ADMIT Colon & Rectal Surgery; ATTEND Colon & Rectal Surgery
PROC: 0QS636Z Reposition Right Upper Femur with Intramedullary Internal Fixation Device, Percutaneous Approach (ICD-10-PCS; principal; 2025-01-29)
PROC: 3E03329 Introduction of Other Anti-infective into Peripheral Vein, Percutaneous Approach (ICD-10-PCS; 2025-01-29)
DX: S72.001A Fracture of unspecified part of neck of right femur, initial encounter for closed fracture (principal); D62 Acute posthemorrhagic anemia; I10 Essential (primary) hypertension; E03.9 Hypothyroidism, unspecified; E78.5 Hyperlipidemia, unspecified; I25.10 Atherosclerotic heart disease of native coronary artery without angina pectoris; K21.9 Gastro-esophageal reflux disease without esophagitis; W19.XXXA Unspecified fall, initial encounter; Z95.1 Presence of aortocoronary bypass graft; Z88.1 Allergy status to other antibiotic agents; Z88.2 Allergy status to sulfonamides; Z79.82 Long term (current) use of aspirin; Z79.890 Hormone replacement therapy; Z79.899 Other long term (current) drug therapy; Z86.73 Personal history of transient ischemic attack (TIA), and cerebral infarction without residual deficits; Z95.5 Presence of coronary angioplasty implant and graft; Z88.8 Allergy status to other drugs, medicaments and biological substances
CPT/HCPCS: 36415; 80048; 80053; 82550; 85025; 85610; 86850; 86900; 86901; 93005; 96374; 96375; C1713; G0390; J1100; J1644; J1885; J2270; J2704; J7030; J7120